=== PATIENT | male | born 1995 | race Two or more races ===

== ENCOUNTER 2018-04-26 18:07 | Emergency (ER) | payer SELFPAY ==
[2018-04-26] MEDS ORDERED: Famotidine IV* 10 MG/ML 2 ML (20 mg) IV SLOW PU ONE (19:14)
--- NOTE | 2018-04-26 19:24 | ED ---
Allergic Reaction/Systemic - HPI Summary HPI Summary: This patient is a 22 year old M BIBA to [facility] accompanied by his friend and head strength and conditioning coach with a chief complaint of allergic reaction to nuts. Pt had Nutella and has a peanut allergy. He states he made a sandwich with possibly contaminated Nutella and an hour later he reacted with facial swelling, SOB, hives. He has had similar reactions with peanuts in the past. The patient rates the pain 0/10 in severity. Symptoms alleviated by EMS medications. He was given epi, duoneb, benadryl, decadron, and NS all IV by EMS. Patient still has mild facial swelling. Patient denies trouble breathing. Pt states he feels well currently but he does not have an epipen at home. Vital signs while in room: HR 84 bpm, BP 140/72. - History of Current Complaint Chief Complaint: EDAllergicReaction Time Seen by Provider: 04/26/18 18:54 Hx Obtained From: Patient, EMS Onset/Duration: Sudden Onset, Still Present - but improved by EMS treatment Timing: Constant Severity Initially: Severe Severity Currently: Mild Pain Intensity: 0 Pain Scale Used: 0-10 Numeric Location: Diffuse Character: Swelling Alleviating Factor(s): Antihistamines, Epinephrine, Other - IV decadron, duoneb Associated Signs And Symptoms: Positive: Cough Wheezing - wheezing, Difficulty Breathing, Rash - hives, Other: - facial swelling. Negative: Throat Tightening - Related Hx Possible Reaction To: Food - peanuts Prior Episode Dx as Allergic Reaction to: Same/Other: peanuts - Allergies/Home Medications Allergies/Adverse Reactions: Allergies Allergy/AdvReac Type Severity Reaction Status Date / Time peanut Allergy Severe Anaphylatic Verified 04/26/18 18:15 Shock PMH/Surg Hx/FS Hx/Imm Hx Endocrine/Hematology History: Reports: Other Endocrine/Hematological Disorders - peanut allergy Denies: Hx Diabetes, Hx Sickle Cell Disease Opthamlomology History: Denies: Hx Legally Blind EENT History: Denies: Hx Deafness, Hx Hearing Problem Neurological History: Denies: Hx CVA - Surgical History Surgery Procedure, Year, and Place: NONE - Immunization History Immunizations Up to Date: Yes Infectious Disease History: No Infectious Disease History: Denies: Traveled Outside the [place] in Last 30 Days - Family History Known Family History: Positive: Other - sister is allergic to peanuts Negative: Blood Disorder - Social History Occupation: Student Lives: Dormitory/Roommates Alcohol Use: None Substance Use Type: Reports: None Smoking Status (MU): Never Smoked Tobacco Review of Systems Positive: Other - allergic reaction ENT: Negative - no throat tightness or hoarseness , Other - facial swelling Respiratory: Other - wheezing Positive: Shortness Of Breath, Other - couldnt breathe from the nose Positive: Other - hives Neurological: Negative Psychological: Normal All Other Systems Reviewed And Are Negative: Yes Physical Exam - Summary Physical Exam Summary: Appearance: Well-appearing, no pain distress, well-nourished, normal phonation Skin: diffuse redness throughout, no definite hives Head: Normal Head/Face inspection, atraumatic Eyes: Conjunctiva clear, bilateral eyelid swelling, diffuse facial swelling ENT: Normal inspection, no swelling of uvula, bifid uvula Neck: Supple, no nodes, no JVD Respiratory: Lungs clear, normal breath sounds, no respiratory distress Cardio: RRR, No murmur, pulses normal, brisk capillary refill Abdomen: Soft, nontender Bowel sounds: Present Musculoskeletal: Strength Intact/ROM intact, no calf tenderness, no edema. Psychological: Normal Neuro: Alert, muscle tone normal, no focal deficit Triage Information Reviewed: Yes Vital Signs On Initial Exam: Initial Vitals Temp Pulse Resp BP Pulse Ox 99.8 F 72 15 150/82 98 04/26/18 18:10 04/26/18 18:10 04/26/18 18:10 04/26/18 18:10 04/26/18 18:10 Vital Signs Reviewed: Yes Diagnostics - Vital Signs Vital Signs Temp Pulse Resp BP Pulse Ox 04/26/18 18:10 99.8 F 72 15 150/82 98 - Laboratory Lab Statement: Any lab studies that have been ordered have been reviewed, and results considered in the medical decision making process. Re-Evaluation - Re-Evaluation First Eval Re-Evaluation Time: 20:00 Change: Improved Comment: Pt has improved and I discussed discharge with him. Allergic Reaction Course/Dx - Course Assessment/Plan: Pt with known peanut allergy with accidental exposure to peanuts arrives via EMS with allergic reaction to peanuts after being given epinephrine, benadryl, decadron and duoneb by EMS with improvement. Given Pepcid 40mg IV in the ED and observed for 2 hours without worsening reaction. Patient will be discharged with prescription for prednisone, pepcid, and epipen , and definite follow up from [facility]. Pt's head strength and conditioning coach remained with pt in the ED and is his ride back to [place]. The patient is agreeable with this plan. - Diagnoses Differential Diagnosis/HQI/PQRI: Positive: Anaphylaxis, Bronchospasm, Local Allergic Reaction, Urticaria Provider Diagnoses: Anaphylactic reaction, Peanut-induced anaphylaxis - Critical Care Time Critical Care Time: 30-74 min - 30 minutes Discharge - Sign-Out/Discharge Documenting (check all that apply): Patient Departure - Discharge Plan Condition: Stable Disposition: HOME Prescriptions: EPINEPHrine [Epipen 2-Jose] 0.3 mg IM ONCE PRN #1 inj PRN Reason: Allergy Symptoms Famotidine TAB 40 MG(NF) [Pepcid TAB 40 MG(NF)] 40 mg PO DAILY #5 tab predniSONE TAB* [Deltasone 20 MG TAB*] 40 mg PO DAILY #10 tab Patient Education Materials: Anaphylaxis (ED) Forms: *Gen. Provider Communication Referrals: [facility] - Norbert BROWN [Medical Doctor] - 1 Day Additional Instructions: You were given adrenaline (epinephrine), duoneb breathing treatment, benadryl, and steroids by the ambulance for anaphylactic allergic reaction to peanuts. You were given pepcid 40mg IV by the ER for continued histamine blocking. You need to take benadryl 50mg four times a day for the next 48 hrs, and then as needed for allergic symptoms. You also need to start pepcid 40mg and prednisone 40mg, both tomorrow, once a day for a total of 5 days. Consider referral to an wrister. Always carry an epipen with you. Avoid any contact with peanuts. Return to the ER if you have any new or worsening symptoms. - Billing Disposition and Condition Condition: STABLE Disposition: Home - Attestation Statements Document Initiated by Harshibe: Yes Documenting Scribe: Roge Mejias Provider For Whom Greg is Documenting (Include Credential): Dr. Lyndsey Hay MD Scribe Attestation: Roge Arias scribed for Dr. Lyndsey Hay MD on 04/29/18 at 0832. Scribe Documentation Reviewed: Yes Provider Attestation: The documentation as recorded by the Roge ricardo accurately reflects the service I personally performed and the decisions made by me, Dr. Lyndsey Hay MD
[2018-04-26 20:44] VITALS: BP 111/81
== END 2018-04-26 20:39 | disposition home or self-care (01) ==
LOC: ED 18:07
DX: T78.01XA Anaphylactic reaction due to peanuts, initial encounter (principal); L50.0 Allergic urticaria; T78.2XXA Anaphylactic shock, unspecified, initial encounter; R60.0 Localized edema
CPT/HCPCS: 96374; 99283